=== PATIENT | male | born 1940 | race African-American/Black ===

== ENCOUNTER 2018-05-29 12:15 | Emergency (ER) | payer MEDICARE ==
[2016-07-20 18:26] VITALS: BP 132/58
[~2018-05-29] VITALS: Ht 196.8 cm; Wt 83.9 kg
[~2018-05-29 12:15] MED LIST: PRED20TA PO; PROAIR HFA8.5 GM INH
[2018-05-29] MEDS ORDERED: CYCL10TA2 PO (13:27)
[2018-05-29] MEDS ORDERED: DICL50TA4 PO (13:27)
[2018-05-29] MEDS ORDERED: METH4TAB2 PO (13:27)
--- NOTE | 2018-05-29 13:27 | PHYS DOC ---
Past Medical History Past Medical History: High Cholesterol, Hypertension Past Surgical History: Coronary Bypass Surgery Additional Past Surgical Histo: open-heart valvular surgery Alcohol Use: None Drug Use: Marijuana Adult General Chief Complaint Chief Complaint: LOWER EXT PAIN HPI HPI Patient is a 78 year old male with history of hypertension, high cholesterol, who presents today complaining of 10 out of 10 pain on his left buttock radiating into the left thigh that began 3-1/2 weeks ago after he started lifting heavy items doing scrap metal. Patient denies any injury. He states pain is worse on certain movements. He states it isn't sbil-yoh-seuealn remedies slight relief. Patient denies any loss of bowel bladder function. Review of Systems Review of Systems Constitutional: Denies fever or chills [] Eyes: Denies change in visual acuity, redness, or eye pain [] HENT: Denies nasal congestion or sore throat [] Respiratory: Denies cough or shortness of breath [] Cardiovascular: No additional information not addressed in HPI [] GI: Denies abdominal pain, nausea, vomiting, bloody stools or diarrhea [] : Denies dysuria or hematuria [] Musculoskeletal: Left low back pain Integument: Denies rash or skin lesions [] Neurologic: Denies headache, focal weakness or sensory changes [] All other systems were reviewed and found to be within normal limits, except as documented in this note. Allergies Allergies Allergies Coded Allergies Type Severity Reaction Last Updated Verified No Known Drug Allergies 07/20/16 No Physical Exam Physical Exam Constitutional: Well developed, well nourished, no acute distress, non-toxic appearance. [] Abdomen: Bowel sounds normal, soft, no tenderness, no masses, no pulsatile masses. [] Skin: Warm, dry, no erythema, no rash. [] Back: Mild tenderness on palpation of the left SI joint, no midline lumbar spine tenderness, no CVA tenderness. [] Extremities: No tenderness, no cyanosis, no clubbing, ROM intact, no edema. [] Neurologic: Alert and oriented X 3, normal motor function, normal sensory function, no focal deficits noted. [] Psychologic: Affect normal, judgement normal, mood normal. [] Current Patient Data Vital Signs Vital Signs Date Time Temp Pulse Resp B/P (MAP) Pulse Ox O2 Delivery O2 Flow Rate FiO2 05/29/18 12:30 98.6 69 18 159/115 (130) 98 Room Air 98.6 EKG EKG [] Radiology/Procedures Radiology/Procedures [] Course & Med Decision Making Course & Med Decision Making Pertinent Labs and Imaging studies reviewed. (See chart for details) This is a 78-year-old male patient presenting to the ED today with complaints of left back pain radiating to the left hamstring, patient has had this pain for 3-1/2 weeks due to lifting heavy items/scrap metal. Patient was instructed to avoid lifting heavy items. Will be discharged with diclofenac and cyclobenzaprine. Provided Medrol Dosepak. Follow-up with PCP in one week. Dragon Disclaimer Dragon Disclaimer This electronic medical record was generated, in whole or in part, using a voice recognition dictation system. Departure Departure Impression: Primary Impression: Left sciatic nerve pain Disposition: HOME, SELF-CARE Condition: STABLE Referrals: NO PCP (PCP) Follow-up with your own doctor in 1-2 weeks Patient Instructions: Sciatica with [facility] Additional Instructions: You were evaluated in the emergency room with pain suspicious of sciatica. Take the prescribed medications as ordered. Follow-up with your doctor in 1-2 weeks. Avoid lifting heavy items for 2 weeks. Apply heat to the affected area. Scripts Methylprednisolone (MEDROL) 4 Mg Tab.ds.pk 1 PKG PO UD, #1 PKG Prov: LUIS FELIPE BROCK APRN 05/29/18 Cyclobenzaprine Hcl (CYCLOBENZAPRINE HCL) 10 Mg Tablet 1 TAB PO TID, #30 TAB Prov: LUIS FELIPE BROCK APRN 05/29/18 Diclofenac Sodium (DICLOFENAC SODIUM) 50 Mg Tablet.dr 1 TAB PO BID, #30 TAB 0 Refills Prov: LUIS FELIPE BROCK APRN 05/29/18 LUIS FELIPE BROCK APRN May 29, 2018 13:27
[2018-05-29] MEDS ORDERED: CYCLOBENZAPRINE 10 MG TABLET. PO ONE (13:30)
[2018-05-29] MEDS ORDERED: HYDROcodone/APAP 5/325MG 1 TAB TABLET PO ONE (13:30)
== END 2018-05-29 13:58 | disposition home or self-care (01) ==
LOC: ER 12:15
DX: M54.42 Lumbago with sciatica, left side (principal); E78.00 Pure hypercholesterolemia, unspecified; I10 Essential (primary) hypertension; Z95.1 Presence of aortocoronary bypass graft
CPT/HCPCS: 99283

== ENCOUNTER 2021-03-04 19:25 | Inpatient (IN) | payer MEDICARE ==
[~2021-03-04] VITALS: Ht 167.6 cm; Wt 76.0 kg
[~2021-03-04 19:25] MED LIST changes: +ALBU2.5V8 INH; +AZIT250T6 PO; +BENZ100C PO; +CYCL10TA2 PO; +DICL50TA4 PO; +METH4TAB2 PO; -PROAIR HFA8.5 GM INH
[2021-03-04] MEDS ORDERED: IV NORMAL SALINE 1000ML BAG 1,000 ML IV ONE ×3 (19:45→22:00)
[2021-03-04 19:49] LABS: BASO % 1 % (0-3); EOS # 0.1 x10^3/uL (0.0-0.7); EOS % 1 % (0-3); HEMATOCRIT 39.7 % (39.0-53.0); HEMOGLOBIN 13.4 g/dL (13.0-17.5); LYMPH # 1.1 x10^3/uL (1.0-4.8); LYMPH % 14 % (24-48); MEAN CORPUSCULAR HEMOGLOBIN 32 pg (25-35); MEAN CORPUSCULAR HGB CONC 34 g/dL (31-37); MEAN CORPUSCULAR VOLUME 94 fL (79-100); MONO # 0.7 x10^3/uL (0.0-1.1); MONO % 10 % (0-9); NEUT # 5.7 x10^3/uL (1.8-7.7); NEUT % 75 % (31-73); PLATELET COUNT 266 x10^3/uL (140-400); RED BLOOD COUNT 4.21 x10^6/uL (4.30-5.70); RED CELL DISTRIBUTION WIDTH 13.2 % (11.5-14.5); WHITE BLOOD COUNT 7.6 x10^3/uL (4.0-11.0)
[2021-03-04 20:05] LABS: CALCIUM 9.1 mg/dL (8.5-10.1); GFR 13.6; POTASSIUM 4.3 mmol/L (3.5-5.1)
[2021-03-04 20:11] LABS: ALBUMIN/GLOBULIN RATIO 1.1 (1.0-1.7); MAGNESIUM 2.6 mg/dL (1.8-2.4); TOTAL BILIRUBIN 0.5 mg/dL (0.2-1.0); TOTAL PROTEIN 7.5 g/dL (6.4-8.2)
--- NOTE | 2021-03-04 20:24 | PHYS DOC ---
Past Medical History Past Medical History: CAD, High Cholesterol, Hypertension Past Surgical History: Coronary Bypass Surgery Additional Past Surgical Histo: open-heart valvular surgery Smoking Status: Never Smoker Alcohol Use: None Drug Use: Cocaine, Marijuana General Adult EDM: Chief Complaint: HYPOTENSION HPI: HPI: Patient is a 80 year old male presented to the ER with 3 days history of generalized weakness. Patient said two days ago, he dropped his medications on the floor, he picked them up and put them in the pills box, mixed them together by accident. He then has been taking them and felt like he took too much of his blood pressure medications. He felt weak and has no energy. He just bought a new house, tried to move his stuffs into a new house today, he overexerted himself and became very weak and tired. Patient has a history of coronary disease, bypass surgery, hypertension, high cholesterol. Patient is not sure what Medications he is on. Patient said he is a and he he normally goes to the OR for his medications. Patient denies any chest pain, no headache, no trouble breathing, no cough, no fever patient denies any abdominal pain, no nausea vomiting Review of Systems: Review of Systems: Constitutional: Denies fever or chills. [] Eyes: Denies change in visual acuity. [] HENT: Denies nasal congestion or sore throat. [] Respiratory: Denies cough or shortness of breath. [] Cardiovascular: Denies chest pain or edema. [] GI: Denies abdominal pain, nausea, vomiting, bloody stools or diarrhea. [] : Denies dysuria. [] Musculoskeletal: Denies back pain or joint pain. [] Integument: Denies rash. [] Neurologic: Positive for general weakness, no headache, no sensory changes Endocrine: Denies polyuria or polydipsia. [] Lymphatic: Denies swollen glands. [] Psychiatric: Denies depression or anxiety. [] Heart Score: C/O Chest Pain: N/A Risk Factors: Risk Factors: DM, Current or recent (<one month) smoker, HTN, HLP, family history of CAD, obesity. Risk Scores: Score 0 - 3: 2.5% MACE over next 6 weeks - Discharge Home Score 4 - 6: 20.3% MACE over next 6 weeks - Admit for Clinical Observation Score 7 - 10: 72.7% MACE over next 6 weeks - Early Invasive Strategies Current Medications: Current Medications Medications (Trade) Dose Ordered Sig/Leroy Start Time Stop Time Status Last Admin Dose Admin Sodium Chloride 1,000 ml @ 1,000 mls/hr 1X ONCE 03/04/21 20:30 03/04/21 21:29 Allergies: Allergies: Allergies Coded Allergies Type Severity Reaction Last Updated Verified No Known Drug Allergies 07/20/16 No Physical Exam: PE: Constitutional: Well developed, well nourished, no acute distress, non-toxic appearance. [] HENT: Normocephalic, atraumatic, bilateral external ears normal, oropharynx moist, no oral exudates, nose normal. [] Eyes: PERRLA, EOMI, conjunctiva normal, no discharge. [] Neck: Normal range of motion, no tenderness, supple, no stridor. [] Cardiovascular:Heart rate regular rhythm, no murmur [] Lungs & Thorax: Bilateral breath sounds clear to auscultation [] Abdomen: Bowel sounds normal, soft, no tenderness, no masses, no pulsatile masses. [] Skin: Warm, dry, no erythema, no rash. [] Back: No tenderness, no CVA tenderness. [] Extremities: No tenderness, no cyanosis, no clubbing, ROM intact, no edema. [] Neurologic: Alert and oriented X 3, normal motor function, normal sensory function, no focal deficits noted. [] Psychologic: Affect normal, judgement normal, mood normal. [] Current Patient Data: Labs: Laboratory Tests Test 03/04/21 19:40 White Blood Count 7.6 x10^3/uL (4.0-11.0) Red Blood Count 4.21 x10^6/uL (4.30-5.70) L Hemoglobin 13.4 g/dL (13.0-17.5) Hematocrit 39.7 % (39.0-53.0) Mean Corpuscular Volume 94 fL (79-100) Mean Corpuscular Hemoglobin 32 pg (25-35) Mean Corpuscular Hemoglobin Concent 34 g/dL (31-37) Red Cell Distribution Width 13.2 % (11.5-14.5) Platelet Count 266 x10^3/uL (140-400) Neutrophils (%) (Auto) 75 % (31-73) H Lymphocytes (%) (Auto) 14 % (24-48) L Monocytes (%) (Auto) 10 % (0-9) H Eosinophils (%) (Auto) 1 % (0-3) Basophils (%) (Auto) 1 % (0-3) Neutrophils # (Auto) 5.7 x10^3/uL (1.8-7.7) Lymphocytes # (Auto) 1.1 x10^3/uL (1.0-4.8) Monocytes # (Auto) 0.7 x10^3/uL (0.0-1.1) Eosinophils # (Auto) 0.1 x10^3/uL (0.0-0.7) Basophils # (Auto) 0.0 x10^3/uL (0.0-0.2) Sodium Level 129 mmol/L (136-145) L Potassium Level 4.3 mmol/L (3.5-5.1) Chloride Level 94 mmol/L (98-107) L Carbon Dioxide Level 22 mmol/L (21-32) Anion Gap 13 (6-14) Blood Urea Nitrogen 65 mg/dL (8-26) H Creatinine 5.0 mg/dL (0.7-1.3) H Estimated GFR (Cockcroft-Gault) 13.6 BUN/Creatinine Ratio 13 (6-20) Glucose Level 141 mg/dL (70-99) H Calcium Level 9.1 mg/dL (8.5-10.1) Magnesium Level 2.6 mg/dL (1.8-2.4) H Total Bilirubin 0.5 mg/dL (0.2-1.0) Aspartate Amino Transferase (AST) 30 U/L (15-37) Alanine Aminotransferase (ALT) 19 U/L (16-63) Alkaline Phosphatase 101 U/L (46-116) Troponin I Quantitative < 0.017 ng/mL (0.000-0.055) GD-Ree-T-Type Natriuretic Peptide 869 pg/mL (0-449) H Total Protein 7.5 g/dL (6.4-8.2) Albumin 4.0 g/dL (3.4-5.0) Albumin/Globulin Ratio 1.1 (1.0-1.7) Laboratory Tests 03/04/21 19:40 Laboratory Tests 7/5/21 19:40 Vital Signs: Vital Signs Date Time Temp Pulse Resp B/P (MAP) Pulse Ox O2 Delivery O2 Flow Rate FiO2 03/04/21 20:03 80 18 96/59 (71) 100 Room Air 03/04/21 19:31 98.1 98.1 EKG: EKG: EKG was done at 1934, heart rate of 77 bpm, sinus rhythm, left axis deviation, PVCs , no ST segment elevation Radiology/Procedures: Radiology/Procedures: [] Course & Med Decision Making: Course & Med Decision Making Pertinent Labs and Imaging studies reviewed. (See chart for details) Patient is a 80-year-old male who present to ER due to generalized weakness, patient said he mistakenly overdosed on his blood pressure medication. Patient blood pressure was low upon arrival to ER, patient was given a liter of saline, his blood pressure was improved to 105/60. Patient felt much better. Patient was found to be in acute renal failure, he will need to be admitted to hospital for further evaluation and treatment, discussed with the hospitalist on-call Dr. Jordan who agreed to admit the patient Dragon Disclaimer: Chantel Disclaimer: This electronic medical record was generated, in whole or in part, using a voice recognition dictation system. Departure Departure Impression: Primary Impression: Acute renal failure Additional Impression: Hypotension Disposition: ADMITTED INPATIENT Admitting Physician: LORETTA (Dr. Jones) Condition: IMPROVED Referrals: UNKNOWN PCP NAME (PCP) CLAUDIA ALICIA DO Mar 04, 2021 20:24
--- NOTE | 2021-03-04 21:06 | EKG ---
[facility] [address] [place] [address] Test Date: 2021-03-04 Test Time: 19:34:12 Pat Name: MEGA LIVINGSTON Department: Room: Gender: M Acute Care Nurse Practitioner: : 1940 Requested By: CLAUDIA ALICIA Order Number: [id number] Reading MD: Andi Benítez Measurements Intervals [place] Rate: 77 P: -32 NC: 192 QRS: -67 QRSD: 152 T: 103 QT: 412 QTc: 468 Interpretive Statements SINUS RHYTHM ABNORMAL LEFT AXIS DEVIATION LEFT ANTERIOR FASCICULAR BLOCK NON SPECIFIC INTRAVENTRICULAR BLOCK QRS(T) CONTOUR ABNORMALITY CONSIDER ANTEROSEPTAL MYOCARDIAL DAMAGE ABNORMAL ECG Electronically Signed On 03-06-2021 11:54:52 CDT by Andi Benítez
--- NOTE | 2021-03-04 21:33 | PDOC1 ---
History and Physical Date of Admission Date of Admission DATE: 03/04/21 TIME: 21:32 Source Source: Patient History of Present Illness History of Present Illness Mr Miguel is a 80 year old male w/ PMHx HTN, HLD, CAD and prior heart valve surgery who presented to the ER with 3 days history of generalized weakness, dizziness, malaise, and visual blurring. He also notes progressive confusion, has decided not to drive due to this. He does note that a few days ago, he dropped his medications on the floor, he picked them up and put them in the pills box, mixed them together by accident. He does not recall all his meds, gets them at the [facility], is pretty certain he takes at least 3 different BP meds, a diuretic among them. He has been moving into a new house and was unable to keep up, thinks he over-exerted himself. He denies any pain, no headache, no trouble breathing, no cough, no fever patient denies any abdominal pain, no nausea vomiting. EKG was done at 1934, heart rate of 77 bpm, sinus rhythm, left axis deviation, PVCs , no ST segment elevation Patient blood pressure was 89/59 on arrival to ER, patient was given a liter of saline, his blood pressure was improved to 105/60. Labs with WBC 7.6, Hb 13.4, platelets 266, NA 129, K4.3, BUN 65, CR 5, glucose 141, NT proBNP is 69, troponin 0 Admitted for further care. Past Medical History Cardiovascular: CAD, CHF, HTN, Hyperlipidemia Pulmonary: Bronchitis Past Surgical History Past Surgical History: Other (Heart valve surgery) Family History Family History: High Cholestrol, Hypertension Social History Smoke: No ALCOHOL: none Drugs: Marijuana Current Problem List Problem List Problems Medical Problems: (1) Acute renal failure Status: Acute (2) Hypotension Status: Acute Current Medications Current Medications Current Medications Sodium Chloride 1,000 ml @ 1,000 mls/hr 1X ONCE IV Last administered on 03/04/21at 19:49; Start 03/04/21 at 19:45; Stop 03/04/21 at 20:44; Status DC Sodium Chloride 1,000 ml @ 1,000 mls/hr 1X ONCE IV Last administered on 03/04/21at 20:25; Start 03/04/21 at 20:30; Stop 03/04/21 at 21:29; Status DC Active Scripts Active Tessalon Perle (Benzonatate) 100 Mg Capsule 1 Cap PO TID Medrol (Methylprednisolone) 4 Mg Tab.ds.pk 1 Pkg PO UD Azithromycin Tablet (Azithromycin) 250 Mg Tablet 1 Pkg PO UD 5 Days 2 the first day followed by 1 for days 2-5 Medrol (Methylprednisolone) 4 Mg Tab.ds.pk 1 Pkg PO UD Cyclobenzaprine Hcl 10 Mg Tablet 1 Tab PO TID Diclofenac Sodium 50 Mg Tablet.dr 1 Tab PO BID Prednisone 20 Mg Tablet 40 Mg PO DAILY 5 Days Proair Hfa Inhaler (Albuterol Sulfate) 8.5 Gm Hfa.aer.ad 1 Puff INH PRN Q6HRS PRN Allergies Allergies: Coded Allergies: No Known Drug Allergies (Unverified , 07/20/16) ROS General: YES: Fatigue, Malaise; No: Chills, Night Sweats, Appetite, Other PSYCHOLOGICAL ROS: YES: Disorientation; No: Anxiety, Behavioral Disorder, Concentration difficultie, Decreased libido, Depression, Hallucinations, Hostility, Irritablity, Memory difficulties, Mood Swings, Obsessive thoughts, Physical abuse, Sexual abuse, Sleep disturbances, Suicidal ideation, Other Eyes: Yes Blurry vision, Yes Decreased vision; No Double vision, No Dry eyes, No Excessive tearing, No Eye Pain, No Itchy Eyes, No Loss of vision, No Photophobia, No Scotomata, No Uses contacts, No Uses glasses, No Other HEENT: YES: Visual Changes; No: Heacaches, Hearing change, Nasal congestion, Nasal discharge, Oral lesions, Sinus pain, Sore Throat, Epistaxis, Sneezing, Snoring, Tinnitus, Vertigo, Vocal changes, Other ALLERGY AND IMMUNOLOGY: No: Hives, Insect Bite Sensitivity, Itchy/Watery Eyes, Nasal Congestion, Post Nasal Drip, Seasonal Allergies, Other Hematological and Lymphatic: No: Bleeding Problems, Blood Clots, Blood Logan sfusions, Brusing, Night Sweats, Pallor, Swollen Lymph Nodes, Other ENDOCRINE: No: Breast Changes, Galactorrhea, Hair Pattern Changes, Hot Flashes, Malaise/lethargy, Mood Swings, Palpitations, Polydipsia/polyuria, Skin Changes, Temperature Intolerance, Unexpected Weight Changes, Other Breast: No New/Changing Breast Lumps, No Nipple changes, No Nipple discharge, No Other Respiratory: YES: Shortness of breath; No: Cough, Hemoptysis, Orthopnea, Pleuritic Pain, SOB with excertion, Sputum Changes, Stridor, Tachypnea, Wheezing, Other Cardiovascular: No Chest Pain, No Palpitations, No Orthopnea, No Paroxysmal Noc. Dyspnea, No Edema, No Lt Headedness, No Other Gastrointestinal: No Nausea, No Vomiting, No Abdominal Pain, No Diarrhea, No Constipation, No Melena, No Hematochezia, No Other Genitourinary: No Dysuria, No Frequency, No Incontinence, No Hematuria, No Retention, No Discharge, No Urgency, No Pain, No Flank Pain, No Other, No , No , No , No , No , No , No Musculoskeletal: No Gait Disturbance, No Joint Pain, No Joint Stiffness, No Joint Swelling, No Muscle Pain, No Muscular Weakness, No Pain In:, No Swelling In:, No Other Neurological: Yes Confusion, Yes Gait Disturbance; No Behavorial Changes, No Bowel/Bladder ControlChng, No Dizziness, No Headaches, No Impaired Coord/balance, No Memory Loss, No Numbness/Tingling, No Seizures, No Speech Problems, No Tremors, No Visual Changes, No Weakness, No Other Skin: No Dry Skin, No Eczema, No Hair Changes, No Lumps, No Mole Changes, No Mottling, No Nail Changes, No Pruritus, No Rash, No Skin Lesion Changes, No Other, No Acne Physical Exam General: Alert, Cooperative, mild distress HEENT: Atraumatic, PERRLA, EOMI, Mucous membr. moist/pink Lungs: Clear to auscultation, Normal air movement Heart: S1S2, RRR, no thrills, no rubs, no gallops, no murmurs Abdomen: Normal bowel sounds, Soft, No tenderness, No hepatosplenomegaly, No masses Rectal Exam: not examined Extremities: No clubbing, No cyanosis, No edema, Normal pulses, No tenderne ss/swelling Skin: No rashes, No breakdown, No significant lesion Neuro: Normal speech, Strength at 5/5 X4 ext, Normal tone, Sensation intact, Cranial nerves 3-12 NL, Reflexes 2+ Psych/Mental Status: Mood NL, Other (Slight confusion) Vitals Vitals Vital Signs Date Time Temp Pulse Resp B/P (MAP) Pulse Ox O2 Delivery O2 Flow Rate FiO2 03/04/21 20:03 80 18 96/59 (71) 100 Room Air 03/04/21 19:31 98.1 98.1 Labs Labs Laboratory Tests Test 03/04/21 19:40 White Blood Count 7.6 x10^3/uL (4.0-11.0) Red Blood Count 4.21 x10^6/uL (4.30-5.70) Hemoglobin 13.4 g/dL (13.0-17.5) Hematocrit 39.7 % (39.0-53.0) Mean Corpuscular Volume 94 fL (79-100) Mean Corpuscular Hemoglobin 32 pg (25-35) Mean Corpuscular Hemoglobin Concent 34 g/dL (31-37) Red Cell Distribution Width 13.2 % (11.5-14.5) Platelet Count 266 x10^3/uL (140-400) Neutrophils (%) (Auto) 75 % (31-73) Lymphocytes (%) (Auto) 14 % (24-48) Monocytes (%) (Auto) 10 % (0-9) Eosinophils (%) (Auto) 1 % (0-3) Basophils (%) (Auto) 1 % (0-3) Neutrophils # (Auto) 5.7 x10^3/uL (1.8-7.7) Lymphocytes # (Auto) 1.1 x10^3/uL (1.0-4.8) Monocytes # (Auto) 0.7 x10^3/uL (0.0-1.1) Eosinophils # (Auto) 0.1 x10^3/uL (0.0-0.7) Basophils # (Auto) 0.0 x10^3/uL (0.0-0.2) Sodium Level 129 mmol/L (136-145) Potassium Level 4.3 mmol/L (3.5-5.1) Chloride Level 94 mmol/L (98-107) Carbon Dioxide Level 22 mmol/L (21-32) Anion Gap 13 (6-14) Blood Urea Nitrogen 65 mg/dL (8-26) Creatinine 5.0 mg/dL (0.7-1.3) Estimated GFR (Cockcroft-Gault) 13.6 BUN/Creatinine Ratio 13 (6-20) Glucose Level 141 mg/dL (70-99) Calcium Level 9.1 mg/dL (8.5-10.1) Magnesium Level 2.6 mg/dL (1.8-2.4) Total Bilirubin 0.5 mg/dL (0.2-1.0) Aspartate Amino Transf (AST/SGOT) 30 U/L (15-37) Alanine Aminotransferase (ALT/SGPT) 19 U/L (16-63) Alkaline Phosphatase 101 U/L (46-116) Troponin I Quantitative < 0.017 ng/mL (0.000-0.055) ZV-Num-E-Type Natriuretic Peptide 869 pg/mL (0-449) Total Protein 7.5 g/dL (6.4-8.2) Albumin 4.0 g/dL (3.4-5.0) Albumin/Globulin Ratio 1.1 (1.0-1.7) Laboratory Tests Test 03/04/21 19:40 White Blood Count 7.6 x10^3/uL (4.0-11.0) Red Blood Count 4.21 x10^6/uL (4.30-5.70) Hemoglobin 13.4 g/dL (13.0-17.5) Hematocrit 39.7 % (39.0-53.0) Mean Corpuscular Volume 94 fL (79-100) Mean Corpuscular Hemoglobin 32 pg (25-35) Mean Corpuscular Hemoglobin Concent 34 g/dL (31-37) Red Cell Distribution Width 13.2 % (11.5-14.5) Platelet Count 266 x10^3/uL (140-400) Neutrophils (%) (Auto) 75 % (31-73) Lymphocytes (%) (Auto) 14 % (24-48) Monocytes (%) (Auto) 10 % (0-9) Eosinophils (%) (Auto) 1 % (0-3) Basophils (%) (Auto) 1 % (0-3) Neutrophils # (Auto) 5.7 x10^3/uL (1.8-7.7) Lymphocytes # (Auto) 1.1 x10^3/uL (1.0-4.8) Monocytes # (Auto) 0.7 x10^3/uL (0.0-1.1) Eosinophils # (Auto) 0.1 x10^3/uL (0.0-0.7) Basophils # (Auto) 0.0 x10^3/uL (0.0-0.2) Sodium Level 129 mmol/L (136-145) Potassium Level 4.3 mmol/L (3.5-5.1) Chloride Level 94 mmol/L (98-107) Carbon Dioxide Level 22 mmol/L (21-32) Anion Gap 13 (6-14) Blood Urea Nitrogen 65 mg/dL (8-26) Creatinine 5.0 mg/dL (0.7-1.3) Estimated GFR (Cockcroft-Gault) 13.6 BUN/Creatinine Ratio 13 (6-20) Glucose Level 141 mg/dL (70-99) Calcium Level 9.1 mg/dL (8.5-10.1) Magnesium Level 2.6 mg/dL (1.8-2.4) Total Bilirubin 0.5 mg/dL (0.2-1.0) Aspartate Amino Transf (AST/SGOT) 30 U/L (15-37) Alanine Aminotransferase (ALT/SGPT) 19 U/L (16-63) Alkaline Phosphatase 101 U/L (46-116) Troponin I Quantitative < 0.017 ng/mL (0.000-0.055) UK-Xfd-W-Type Natriuretic Peptide 869 pg/mL (0-449) Total Protein 7.5 g/dL (6.4-8.2) Albumin 4.0 g/dL (3.4-5.0) Albumin/Globulin Ratio 1.1 (1.0-1.7) VTE Prophylaxis Ordered VTE Prophylaxis Devices: No VTE Pharmacological Prophylaxi: Yes Assessment/Plan Assessment/Plan A/P: Confusion - improved after IVF, likely due to hypotension, poor cerebral perfusion ALEX - likely vasomotor nephropathy from renal hypoperfusion. No anemia or other stigmata of CKD and he denies CKD history. Will hydrate Hyponatremia - hypovolemic, will replace, follow sodium trend. Reconcile meds and consult nephrology Weakness - will check TSH, B12. PT to evaluate Hypotension - likely due to accidental med overdose HTN - will reconcile home medications with pharmacy. Hold all meds currently due to symptomatic hypotension CAD - s/p valve surgery - likely mitral or aortic valve clipping, will obtain [facility] records Hyperglycemia - likely stress related, he does not recall history of diabetes H/o bronchitis - prn nebs FEN - Cardiac diet PPX - heparin FULL CODE Dispo - inpatient for above Justifications for Admission Other Justification OLIVE LUNDBERG MD Mar 04, 2021 21:33
[2021-03-04] MEDS ORDERED: ACETAMINOPHEN 325 MG TABLET. PO PRN (21:45)
[2021-03-04] MEDS ORDERED: ONDANSETRON PF 4 MG/2 ML VIAL. IVP PRN (21:45)
[2021-03-04] MEDS ORDERED: hydrALAZINE 20 MG/ML VIAL. IVP PRN (21:45)
[2021-03-04 22:55] VITALS: BP 103/65
[2021-03-04] MEDS: HEPARIN for SUB-Q USE 5,000 UNIT/ML VIAL. SQ SCH (23:03)
[2021-03-04] MEDS ORDERED: ALBUTEROL SULFATE 2.5 MG/3 ML NEBU. INH PRN (23:30)
[2021-03-05 03:00] VITALS: BP 92/62
[2021-03-05] MEDS: HEPARIN for SUB-Q USE 5,000 UNIT/ML VIAL. SQ SCH ×3 (06:11→21:31)
[2021-03-05 06:31] LABS: BASO % 1 % (0-3); EOS # 0.1 x10^3/uL (0.0-0.7); EOS % 2 % (0-3); HEMATOCRIT 35.6 % (39.0-53.0); LYMPH # 1.8 x10^3/uL (1.0-4.8); LYMPH % 30 % (24-48); MEAN CORPUSCULAR HEMOGLOBIN 32 pg (25-35); MEAN CORPUSCULAR HGB CONC 34 g/dL (31-37); MEAN CORPUSCULAR VOLUME 95 fL (79-100); MONO # 0.7 x10^3/uL (0.0-1.1); MONO % 12 % (0-9); NEUT # 3.4 x10^3/uL (1.8-7.7); NEUT % 56 % (31-73); PLATELET COUNT 227 x10^3/uL (140-400); RED BLOOD COUNT 3.74 x10^6/uL (4.30-5.70); RED CELL DISTRIBUTION WIDTH 13.4 % (11.5-14.5)
[2021-03-05 06:43] LABS: CALCIUM 8.1 mg/dL (8.5-10.1); CREATININE 3.7 mg/dL (0.7-1.3); GFR 19.3; POTASSIUM 4.3 mmol/L (3.5-5.1)
[2021-03-05 07:17] VITALS: BP 93/62
--- NOTE | 2021-03-05 09:22 | PDOC2 ---
CONSULT Date of Consult Date of Consult DATE: 03/05/21 TIME: 09:22 Reason for Consult Reason for Consult: ALEX, HypoNatremia Source Source: Chart review, Patient History of Present Illness Reason for Visit: Patient is a 80 year old AA male w/ PMHx HTN, CAD and prior heart valve surgery who presented to the ER with 3 days history of generalized weakness, dizziness, malaise, and visual blurring. He also notes progressive confusion He reports that that a few days ago, he dropped his medications on the floor, he picked them up and put them in the pills box, mixed them together by accident. He does not recall all his meds, gets them at the [facility], is pretty certain he takes at least 3 different BP meds, a diuretic among them. He has been moving into a new house and was unable to keep up, thinks he over- exerted himself. He denies any pain, no headache, no trouble breathing, no cough, no fever patient denies any abdominal pain, no nausea vomiting. He is c/o diarrhea for past few days, reports watery 3-4 /day , denies any blood, No abdominal cramping. Denies any urinary complaints , No dysuria, hematuria. Doesnt know if he has any kidney related issues or sees a kidney doctor. He is on remy meds as prescribed, doesnt recall names. Denies any OTC meds/supplements . He reports smoking Marijuana for sleep Past Medical History Cardiovascular: CAD, CHF, HTN, Hyperlipidemia Pulmonary: Bronchitis Past Surgical History Past Surgical History: Other (Heart valve surgery) Family History Family History: High Cholestrol, Hypertension Social History No ALCOHOL: none Drugs: Marijuana Current Problem List Problem List Problems Medical Problems: (1) Acute renal failure Status: Acute (2) Hypotension Status: Acute Current Medications Current Medications Current Medications Sodium Chloride 1,000 ml @ 1,000 mls/hr 1X ONCE IV Last administered on 03/04/21at 19:49; Start 03/04/21 at 19:45; Stop 03/04/21 at 20:44; Status DC Sodium Chloride 1,000 ml @ 1,000 mls/hr 1X ONCE IV Last administered on 1at 20:25; Start 03/04/21 at 20:30; Stop 03/04/21 at 21:29; Status DC Ondansetron HCl (Zofran) 4 mg PRN Q4HRS PRN IVP NAUSEA/VOMITING 1ST CHOICE; Start 03/04/21 at 21:45 Heparin Sodium (Porcine) (Heparin Sodium) 5,000 unit Q8HRS SQ Last administered on 03/05/21at 06:11; Start 03/04/21 at 22:00 Acetaminophen (Tylenol) 650 mg PRN Q6HRS PRN PO MILD PAIN / TEMP > 100.3'F; Start 03/04/21 at 21:45 Hydralazine HCl (Apresoline Inj) 10 mg PRN Q4HRS PRN IVP ELEVATED BP, SEE COMMENTS; Start 03/04/21 at 21:45 Sodium Chloride 1,000 ml @ 125 mls/hr 1X ONCE IV Last administered on 03/04/21at 23:02; Start 03/04/21 at 22:00; Stop 03/05/21 at 05:59; Status DC Albuterol Sulfate (Ventolin Neb Soln) 2.5 mg PRN Q6HRS PRN INH SHORTNESS OF BREATH; Start 03/04/21 at 23:30 Active Scripts Active Tessalon Perle (Benzonatate) 100 Mg Capsule 1 Cap PO TID Medrol (Methylprednisolone) 4 Mg Tab.ds.pk 1 Pkg PO UD Azithromycin Tablet (Azithromycin) 250 Mg Tablet 1 Pkg PO UD 5 Days 2 the first day followed by 1 for days 2-5 Medrol (Methylprednisolone) 4 Mg Tab.ds.pk 1 Pkg PO UD Cyclobenzaprine Hcl 10 Mg Tablet 1 Tab PO TID Diclofenac Sodium 50 Mg Tablet.dr 1 Tab PO BID Prednisone 20 Mg Tablet 40 Mg PO DAILY 5 Days Proair Hfa Inhaler (Albuterol Sulfate) 8.5 Gm Hfa.aer.ad 1 Puff INH PRN Q6HRS PRN Allergies Allergies: Coded Allergies: No Known Drug Allergies (Unverified , 07/20/16) ROS Review of System As per HPI, rest of the ROS is negative Physical Exam Physical Exam General: NAD , Propped up in bed HEENT: Mucous membr mildly dry Neck supple Lungs: Clear to auscultation, non labored Heart: S1S2, RRR, no thrills, no rubs, no gallops, no murmurs Abdomen: Normal bowel sounds, Soft, No tenderness, No hepatosplenomegaly, No masses Extremities: No clubbing, No cyanosis, No edema, Skin: No rashes, Neuro:Grossly normal No galvez, No CVA or SP tenderness Psych/Mental Status: Mood NL, Other (Slight confusion) Vital Signs Vital Signs Date Time Temp Pulse Resp B/P (MAP) Pulse Ox O2 Delivery O2 Flow Rate FiO2 03/05/21 07:17 98.1 75 16 93/62 (72) 99 Room Air 98.1 Assessment & Plan ALEX- Vasomotor , Improving renal function, No Interval labs since 2016, PCP at [facility] - pt unable to give any details Recommend Supportive care, Fluid balance, avoid nephrotoxins, Strict I/O CKD stage 3 A - Only lab in [facility] from 2016 Cr 1.7 , no interval labs available HypoNatremia 2/2 Vol depletion, resolved with IVF Hypotension POA 2/2 accidental overdose Confusion - improved after IVF Diarrhea - per pt, defer to primary Hx of HTN - on antihypertensives at home , BP's Low, Hold antihypertensives CAD / s/p valve surgery - likely mitral or aortic valve clipping Labs Labs Laboratory Tests Test 03/04/21 00:15 03/04/21 19:40 03/05/21 05:40 Vitamin B12 Level 472 pg/mL (247-911) Thyroid Stimulating Hormone (TSH) 0.273 uIU/mL (0.358-3.74) White Blood Count 7.6 x10^3/uL (4.0-11.0) 6.0 x10^3/uL (4.0-11.0) Red Blood Count 4.21 x10^6/uL (4.30-5.70) 3.74 x10^6/uL (4.30-5.70) Hemoglobin 13.4 g/dL (13.0-17.5) 12.0 g/dL (13.0-17.5) Hematocrit 39.7 % (39.0-53.0) 35.6 % (39.0-53.0) Mean Corpuscular Volume 94 fL (79-100) 95 fL (79-100) Mean Corpuscular Hemoglobin 32 pg (25-35) 32 pg (25-35) Mean Corpuscular Hemoglobin Concent 34 g/dL (31-37) 34 g/dL (31-37) Red Cell Distribution Width 13.2 % (11.5-14.5) 13.4 % (11.5-14.5) Platelet Count 266 x10^3/uL (140-400) 227 x10^3/uL (140-400) Neutrophils (%) (Auto) 75 % (31-73) 56 % (31-73) Lymphocytes (%) (Auto) 14 % (24-48) 30 % (24-48) Monocytes (%) (Auto) 10 % (0-9) 12 % (0-9) Eosinophils (%) (Auto) 1 % (0-3) 2 % (0-3) Basophils (%) (Auto) 1 % (0-3) 1 % (0-3) Neutrophils # (Auto) 5.7 x10^3/uL (1.8-7.7) 3.4 x10^3/uL (1.8-7.7) Lymphocytes # (Auto) 1.1 x10^3/uL (1.0-4.8) 1.8 x10^3/uL (1.0-4.8) Monocytes # (Auto) 0.7 x10^3/uL (0.0-1.1) 0.7 x10^3/uL (0.0-1.1) Eosinophils # (Auto) 0.1 x10^3/uL (0.0-0.7) 0.1 x10^3/uL (0.0-0.7) Basophils # (Auto) 0.0 x10^3/uL (0.0-0.2) 0.0 x10^3/uL (0.0-0.2) Sodium Level 129 mmol/L (136-145) 137 mmol/L (136-145) Potassium Level 4.3 mmol/L (3.5-5.1) 4.3 mmol/L (3.5-5.1) Chloride Level 94 mmol/L (98-107) 103 mmol/L (98-107) Carbon Dioxide Level 22 mmol/L (21-32) 24 mmol/L (21-32) Anion Gap 13 (6-14) 10 (6-14) Blood Urea Nitrogen 65 mg/dL (8-26) 59 mg/dL (8-26) Creatinine 5.0 mg/dL (0.7-1.3) 3.7 mg/dL (0.7-1.3) Estimated GFR (Cockcroft-Gault) 13.6 19.3 BUN/Creatinine Ratio 13 (6-20) Glucose Level 141 mg/dL (70-99) 81 mg/dL (70-99) Calcium Level 9.1 mg/dL (8.5-10.1) 8.1 mg/dL (8.5-10.1) Magnesium Level 2.6 mg/dL (1.8-2.4) Total Bilirubin 0.5 mg/dL (0.2-1.0) Aspartate Amino Transf (AST/SGOT) 30 U/L (15-37) Alanine Aminotransferase (ALT/SGPT) 19 U/L (16-63) Alkaline Phosphatase 101 U/L (46-116) Troponin I Quantitative < 0.017 ng/mL (0.000-0.055) < 0.017 ng/mL (0.000-0.055) UB-Kfm-S-Type Natriuretic Peptide 869 pg/mL (0-449) Total Protein 7.5 g/dL (6.4-8.2) Albumin 4.0 g/dL (3.4-5.0) Albumin/Globulin Ratio 1.1 (1.0-1.7) Laboratory Tests Test 03/04/21 19:40 03/05/21 05:40 White Blood Count 7.6 x10^3/uL (4.0-11.0) 6.0 x10^3/uL (4.0-11.0) Red Blood Count 4.21 x10^6/uL (4.30-5.70) 3.74 x10^6/uL (4.30-5.70) Hemoglobin 13.4 g/dL (13.0-17.5) 12.0 g/dL (13.0-17.5) Hematocrit 39.7 % (39.0-53.0) 35.6 % (39.0-53.0) Mean Corpuscular Volume 94 fL (79-100) 95 fL (79-100) Mean Corpuscular Hemoglobin 32 pg (25-35) 32 pg (25-35) Mean Corpuscular Hemoglobin Concent 34 g/dL (31-37) 34 g/dL (31-37) Red Cell Distribution Width 13.2 % (11.5-14.5) 13.4 % (11.5-14.5) Platelet Count 266 x10^3/uL (140-400) 227 x10^3/uL (140-400) Neutrophils (%) (Auto) 75 % (31-73) 56 % (31-73) Lymphocytes (%) (Auto) 14 % (24-48) 30 % (24-48) Monocytes (%) (Auto) 10 % (0-9) 12 % (0-9) Eosinophils (%) (Auto) 1 % (0-3) 2 % (0-3) Basophils (%) (Auto) 1 % (0-3) 1 % (0-3) Neutrophils # (Auto) 5.7 x10^3/uL (1.8-7.7) 3.4 x10^3/uL (1.8-7.7) Lymphocytes # (Auto) 1.1 x10^3/uL (1.0-4.8) 1.8 x10^3/uL (1.0-4.8) Monocytes # (Auto) 0.7 x10^3/uL (0.0-1.1) 0.7 x10^3/uL (0.0-1.1) Eosinophils # (Auto) 0.1 x10^3/uL (0.0-0.7) 0.1 x10^3/uL (0.0-0.7) Basophils # (Auto) 0.0 x10^3/uL (0.0-0.2) 0.0 x10^3/uL (0.0-0.2) Sodium Level 129 mmol/L (136-145) 137 mmol/L (136-145) Potassium Level 4.3 mmol/L (3.5-5.1) 4.3 mmol/L (3.5-5.1) Chloride Level 94 mmol/L (98-107) 103 mmol/L (98-107) Carbon Dioxide Level 22 mmol/L (21-32) 24 mmol/L (21-32) Anion Gap 13 (6-14) 10 (6-14) Blood Urea Nitrogen 65 mg/dL (8-26) 59 mg/dL (8-26) Creatinine 5.0 mg/dL (0.7-1.3) 3.7 mg/dL (0.7-1.3) Estimated GFR (Cockcroft-Gault) 13.6 19.3 BUN/Creatinine Ratio 13 (6-20) Glucose Level 141 mg/dL (70-99) 81 mg/dL (70-99) Calcium Level 9.1 mg/dL (8.5-10.1) 8.1 mg/dL (8.5-10.1) Magnesium Level 2.6 mg/dL (1.8-2.4) Total Bilirubin 0.5 mg/dL (0.2-1.0) Aspartate Amino Transf (AST/SGOT) 30 U/L (15-37) Alanine Aminotransferase (ALT/SGPT) 19 U/L (16-63) Alkaline Phosphatase 101 U/L (46-116) Troponin I Quantitative < 0.017 ng/mL (0.000-0.055) < 0.017 ng/mL (0.000-0.055) NO-Mne-C-Type Natriuretic Peptide 869 pg/mL (0-449) Total Protein 7.5 g/dL (6.4-8.2) Albumin 4.0 g/dL (3.4-5.0) Albumin/Globulin Ratio 1.1 (1.0-1.7) Review All relevant outside records, renal labs, imaging studies, telemetry/EKG's were reviewed. LIZABETH RAMIREZ MD Mar 05, 2021 09:22
[2021-03-05] MEDS ORDERED: PHARMACY TO REVIEW MEDS. MC ONE (10:15)
[2021-03-05 10:25] VITALS: BP 94/65
--- NOTE | 2021-03-05 10:54 | NUR ---
SS following for discharge planning. SS reviewed pt chart and discussed with pt RN. Pt is from home and is currently on room air. PT/OT ordered. PT recommended home independent. SS will continue to follow for discharge planning.
[2021-03-05] MEDS ORDERED: TORS20TA2 PO (11:04)
[2021-03-05] MEDS ORDERED: SENN8.6T11 PO (11:04)
[2021-03-05] MEDS ORDERED: LISI40TA6 PO (11:04)
[2021-03-05] MEDS ORDERED: ALLO300T PO (11:05)
[2021-03-05] MEDS ORDERED: CYCL10TA2 PO (11:14)
[2021-03-05] MEDS ORDERED: CHOL500021 PO (11:14)
[2021-03-05] MEDS ORDERED: ASCO100T4 PO (11:14)
[2021-03-05] MEDS ORDERED: ASPI81TA59 PO (11:14)
[2021-03-05] MEDS ORDERED: EPLE25TA4 PO (11:24)
[2021-03-05 14:40] LABS: BILIRUBIN,URINE NEGATIVE (NEG); CLARITY,URINE CLEAR; COLOR,URINE YELLOW; NITRITE,URINE NEGATIVE (NEG); PH,URINE 5.5 (<5.0-8.0); PROTEIN,URINE NEGATIVE (NEG-TRACE); UROBILINOGEN,URINE 0.2 mg/dL (0.2 mg/dL)
[2021-03-05 14:47] LABS: TRICHOMONAS,URINE PRESENT
[2021-03-05 14:49] LABS: BACTERIA,URINE 0 /HPF (0-FEW); RBC,URINE 0 /HPF (0-2)
[2021-03-05 14:55] VITALS: BP 92/60
[2021-03-05] MEDS ORDERED: CYCLOBENZAPRINE 10 MG TABLET. PO PRN (15:00)
--- NOTE | 2021-03-05 17:09 | PDOC ---
[employer] PROGRESS NOTE Date of Service DOS: DATE: 03/05/21 TIME: 17:05 Chief Complaint Chief Complaint Weakness, Hypotension History of Present Illness History of Present Illness 03/05/2021 Patient seen and examined at bedside Reports notable improvement in his symptoms since admission Believes it is highly likely he essentially overdosed on his blood pressure pills Nephrology consulted for ALEX Plan of care discussed with bedside RN Mr Miguel is a 80 year old male w/ PMHx HTN, HLD, CAD and prior heart valve surgery who presented to the ER with 3 days history of generalized weakness, dizziness, malaise, and visual blurring. He also notes progressive confusion, has decided not to drive due to this. He does note that a few days ago, he dropped his medications on the floor, he picked them up and put them in the pills box, mixed them together by accident. He does not recall all his meds, gets them at the [facility], is pretty certain he takes at least 3 different BP meds, a diuretic among them. He has been moving into a new house and was unable to keep up, thinks he over-exerted himself. He denies any pain, no headache, no trouble breathing, no cough, no fever patient denies any abdominal pain, no nausea vomiting. EKG was done at 1934, heart rate of 77 bpm, sinus rhythm, left axis deviation, PVCs , no ST segment elevation Patient blood pressure was 89/59 on arrival to ER, patient was given a liter of saline, his blood pressure was improved to 105/60. Labs with WBC 7.6, Hb 13.4, platelets 266, NA 129, K4.3, BUN 65, CR 5, glucose 141, NT proBNP is 69, troponin 0 Admitted for further care. Vitals/I&O Vitals/I&O: Vital Signs Date Time Temp Pulse Resp B/P (MAP) Pulse Ox O2 Delivery O2 Flow Rate FiO2 03/05/21 14:55 97.9 67 16 92/60 (71) 98 Room Air 97.9 I & O 03/04/21 03/04/21 03/05/21 15:00 23:00 07:00 Intake Total 2000 ml 720 ml Output Total 1050 ml Balance 2000 ml -330 ml Physical Exam General: Alert, Cooperative, No acute distress Heart: Regular rate, Normal S1, Normal S2 Lungs: Other (Somewhat coarse throughout but not requiring any supplemental oxygen) Abdomen: Normal bowel sounds, Soft, No tenderness, No masses Extremities: No clubbing, No cyanosis, No edema, Normal pulses, No tend erness/swelling Skin: No rashes, No breakdown, No significant lesion Labs Labs: Laboratory Tests Test 03/04/21 19:40 03/05/21 05:40 03/05/21 14:11 White Blood Count 7.6 x10^3/uL (4.0-11.0) 6.0 x10^3/uL (4.0-11.0) Red Blood Count 4.21 x10^6/uL (4.30-5.70) 3.74 x10^6/uL (4.30-5.70) Hemoglobin 13.4 g/dL (13.0-17.5) 12.0 g/dL (13.0-17.5) Hematocrit 39.7 % (39.0-53.0) 35.6 % (39.0-53.0) Mean Corpuscular Volume 94 fL (79-100) 95 fL (79-100) Mean Corpuscular Hemoglobin 32 pg (25-35) 32 pg (25-35) Mean Corpuscular Hemoglobin Concent 34 g/dL (31-37) 34 g/dL (31-37) Red Cell Distribution Width 13.2 % (11.5-14.5) 13.4 % (11.5-14.5) Platelet Count 266 x10^3/uL (140-400) 227 x10^3/uL (140-400) Neutrophils (%) (Auto) 75 % (31-73) 56 % (31-73) Lymphocytes (%) (Auto) 14 % (24-48) 30 % (24-48) Monocytes (%) (Auto) 10 % (0-9) 12 % (0-9) Eosinophils (%) (Auto) 1 % (0-3) 2 % (0-3) Basophils (%) (Auto) 1 % (0-3) 1 % (0-3) Neutrophils # (Auto) 5.7 x10^3/uL (1.8-7.7) 3.4 x10^3/uL (1.8-7.7) Lymphocytes # (Auto) 1.1 x10^3/uL (1.0-4.8) 1.8 x10^3/uL (1.0-4.8) Monocytes # (Auto) 0.7 x10^3/uL (0.0-1.1) 0.7 x10^3/uL (0.0-1.1) Eosinophils # (Auto) 0.1 x10^3/uL (0.0-0.7) 0.1 x10^3/uL (0.0-0.7) Basophils # (Auto) 0.0 x10^3/uL (0.0-0.2) 0.0 x10^3/uL (0.0-0.2) Sodium Level 129 mmol/L (136-145) 137 mmol/L (136-145) Potassium Level 4.3 mmol/L (3.5-5.1) 4.3 mmol/L (3.5-5.1) Chloride Level 94 mmol/L (98-107) 103 mmol/L (98-107) Carbon Dioxide Level 22 mmol/L (21-32) 24 mmol/L (21-32) Anion Gap 13 (6-14) 10 (6-14) Blood Urea Nitrogen 65 mg/dL (8-26) 59 mg/dL (8-26) Creatinine 5.0 mg/dL (0.7-1.3) 3.7 mg/dL (0.7-1.3) Estimated GFR (Cockcroft-Gault) 13.6 19.3 BUN/Creatinine Ratio 13 (6-20) Glucose Level 141 mg/dL (70-99) 81 mg/dL (70-99) Calcium Level 9.1 mg/dL (8.5-10.1) 8.1 mg/dL (8.5-10.1) Magnesium Level 2.6 mg/dL (1.8-2.4) Total Bilirubin 0.5 mg/dL (0.2-1.0) Aspartate Amino Transf (AST/SGOT) 30 U/L (15-37) Alanine Aminotransferase (ALT/SGPT) 19 U/L (16-63) Alkaline Phosphatase 101 U/L (46-116) Troponin I Quantitative < 0.017 ng/mL (0.000-0.055) < 0.017 ng/mL (0.000-0.055) WT-Rzh-D-Type Natriuretic Peptide 869 pg/mL (0-449) Total Protein 7.5 g/dL (6.4-8.2) Albumin 4.0 g/dL (3.4-5.0) Albumin/Globulin Ratio 1.1 (1.0-1.7) Urine Collection Type Unknown Urine Color Yellow Urine Clarity Clear Urine pH 5.5 (<5.0-8.0) Urine Specific [place] <=1.005 (1.000-1.030) Urine Protein Negative mg/dL (NEG-TRACE) Urine Glucose (UA) Negative mg/dL (NEG) Urine Ketones (Stick) Negative mg/dL (NEG) Urine Blood Negative (NEG) Urine Nitrite Negative (NEG) Urine Bilirubin Negative (NEG) Urine Urobilinogen Dipstick 0.2 mg/dL (0.2 mg/dL) Urine Leukocyte Esterase Large (NEG) Urine RBC 0 /HPF (0-2) Urine WBC 11-20 /HPF (0-4) Urine Squamous Epithelial Cells Few /LPF Urine Bacteria 0 /HPF (0-FEW) Urine Trichomonas Present Urine Random Creatinine 60.7 mg/dL (Not Establ.) Review of Systems Review of Systems: Patient reports ongoing mild weakness however significantly improved since admission otherwise negative Assessment and Plan Assessmemt and Plan Problems Medical Problems: (1) Acute renal failure Status: Acute (2) Hypotension Status: Acute A/P: Confusion - improved after IVF, likely due to hypotension, poor cerebral perfusion ALEX - likely vasomotor nephropathy from renal hypoperfusion. No anemia or other stigmata of CKD and he denies CKD history. Will continue hydration; nephrology consulted Hyponatremia - hypovolemic, will replace, follow sodium trend. Reconcile meds and consult nephrology Weakness - PT to evaluate Hypotension - likely due to accidental med overdose HTN - holding home BP meds due to hypotension CAD - s/p valve surgery - likely mitral or aortic valve clipping, will obtain [facility] records Hyperglycemia - likely stress related, he does not recall history of diabetes H/o bronchitis - prn nebs FEN - Cardiac diet PPX - heparin FULL CODE Dispo - inpatient for above Comment Review of Relevant I have reviewed the following items milad (where applicable) has been applied. Medications: Current Medications Medications (Trade) Dose Ordered Sig/Leroy Route PRN Reason Start Time Stop Time Status Last Admin Dose Admin Sodium Chloride 1,000 ml @ 1,000 mls/hr 1X ONCE IV 03/04/21 19:45 03/04/21 20:44 DC 03/04/21 19:49 Sodium Chloride 1,000 ml @ 1,000 mls/hr 1X ONCE IV 03/04/21 20:30 03/04/21 21:29 DC 03/04/21 20:25 Heparin Sodium (Porcine) (Heparin Sodium) 5,000 unit Q8HRS SQ 03/04/21 22:00 03/05/21 14:16 Sodium Chloride 1,000 ml @ 125 mls/hr 1X ONCE IV 03/04/21 22:00 03/05/21 05:59 DC 03/04/21 23:02 Justifications for Admission Other Justification OLIVE JUAREZ MD Mar 05, 2021 17:09
[2021-03-05 19:00] VITALS: BP 96/62
[2021-03-05 23:00] VITALS: BP 118/66
[2021-03-05 23:12] LABS: SODIUM, URINE <20 mmol/L (Not Estab.); UR POTASSIUM 8.1 mmol/L (Not Estab.)
[2021-03-06 02:52] VITALS: BP 96/62
[2021-03-06 04:34] LABS: CALCIUM 8.2 mg/dL (8.5-10.1); CREATININE 2.1 mg/dL (0.7-1.3); POTASSIUM 4.7 mmol/L (3.5-5.1)
[2021-03-06] MEDS: HEPARIN for SUB-Q USE 5,000 UNIT/ML VIAL. SQ SCH ×2 (06:20→14:46)
[2021-03-06 07:00] VITALS: BP 105/71
[2021-03-06] MEDS ORDERED: ALLOPURINOL 100 MG TABLET. PO SCH (09:00)
[2021-03-06] MEDS ORDERED: ASPIRIN CHEWABLE 81 MG TABLET. PO SCH (09:00)
--- NOTE | 2021-03-06 09:54 | PDOC ---
DATE OF SERVICE DATE: 03/06/21 TIME: 09:53 SUBJECTIVE ROS States he is feeling much better and is anticipating discharge today OBJECTIVE Vital Signs Vital Signs Date Time Temp Pulse Resp B/P (MAP) Pulse Ox O2 Delivery O2 Flow Rate FiO2 03/06/21 08:18 99 Room Air 03/06/21 07:00 97.8 61 18 105/71 (82) 97.8 I & 0 Intake and Output 03/06/21 07:00 Intake Total 2180 ml Output Total 2750 ml Balance -570 ml Intake Oral 1180 ml IV Total 1000 ml Output Urine Total 2750 ml PHYSICAL EXAM Physical Exam General: NAD HEENT: Mucous membr moist Neck supple Lungs: Clear to auscultation, non labored Heart: S1S2, RRR, no thrills, no rubs, no gallops, no murmurs Abdomen: Normal bowel sounds, Soft, No tenderness, No hepatosplenomegaly, No masses Extremities: No clubbing, No cyanosis, No edema, Skin: No rashes, Neuro:Grossly normal No galvez, No CVA or SP tenderness DIAGNOSIS/ASSESSMENT Assessment & Plan ALEX- Vasomotor , Improving renal function, No Interval labs since 2016, PCP at [facility] - pt unable to give any details Recommend Supportive care, Fluid balance, avoid dehydration, avoid nephrotoxins, Follow up with toe stripper at [facility] CKD stage 3 A - Only lab in [facility] from 2016 Cr 1.7 , no interval labs available HypoNatremia 2/2 Vol depletion, resolved with IVF Hypotension POA 2/2 accidental overdose Confusion - resolved Diarrhea - per pt, defer to primary Hx of HTN - on antihypertensives at home , BP's Low, Hold antihypertensives CAD / s/p valve surgery - likely mitral or aortic valve clipping COMMENT/RELEVANT DATA Meds Current Medications Medications (Trade) Dose Ordered Sig/Leroy Start Time Stop Time Status Last Admin Dose Admin Acetaminophen (Tylenol) 650 mg PRN Q6HRS PRN 03/04/21 21:45 Albuterol Sulfate (Ventolin Neb Soln) 2.5 mg PRN Q6HRS PRN 03/04/21 23:30 Allopurinol (Zyloprim) 100 mg DAILY 03/06/21 09:00 03/06/21 08:38 100 MG Aspirin (Aspirin Chewable) 81 mg DAILY 03/06/21 09:00 03/06/21 08:38 81 MG Cyclobenzaprine HCl (Flexeril) 10 mg TID PRN PRN 03/05/21 15:00 Heparin Sodium (Porcine) (Heparin Sodium) 5,000 unit Q8HRS 03/04/21 22:00 03/06/21 06:20 5,000 UNIT Hydralazine HCl (Apresoline Inj) 10 mg PRN Q4HRS PRN 03/04/21 21:45 Info (Review Meds) 1 ea 1X ONCE 03/05/21 10:15 03/05/21 10:16 Cancel Ondansetron HCl (Zofran) 4 mg PRN Q4HRS PRN 03/04/21 21:45 Sodium Chloride 1,000 ml @ 125 mls/hr 1X ONCE 03/04/21 22:00 03/05/21 05:59 DC 03/04/21 23:02 125 MLS/HR Lab Laboratory Tests Test 03/05/21 14:11 03/06/21 03:10 Urine Collection Type Unknown Urine Color Yellow Urine Clarity Clear Urine pH 5.5 (<5.0-8.0) Urine Specific [place] <=1.005 (1.000-1.030) Urine Protein Negative mg/dL (NEG-TRACE) Urine Glucose (UA) Negative mg/dL (NEG) Urine Ketones (Stick) Negative mg/dL (NEG) Urine Blood Negative (NEG) Urine Nitrite Negative (NEG) Urine Bilirubin Negative (NEG) Urine Urobilinogen Dipstick 0.2 mg/dL (0.2 mg/dL) Urine Leukocyte Esterase Large (NEG) Urine RBC 0 /HPF (0-2) Urine WBC 11-20 /HPF (0-4) Urine Squamous Epithelial Cells Few /LPF Urine Bacteria 0 /HPF (0-FEW) Urine Trichomonas Present Urine Random Creatinine 60.7 mg/dL (Not Establ.) Urine Sodium <20 mmol/L (Not Estab.) Urine Potassium 8.1 mmol/L (Not Estab.) Urine Chloride <20 mmol/L (Not Estab.) Sodium Level 140 mmol/L (136-145) Potassium Level 4.7 mmol/L (3.5-5.1) Chloride Level 106 mmol/L (98-107) Carbon Dioxide Level 26 mmol/L (21-32) Anion Gap 8 (6-14) Blood Urea Nitrogen 39 mg/dL (8-26) Creatinine 2.1 mg/dL (0.7-1.3) Estimated GFR (Cockcroft-Gault) 37.0 Glucose Level 86 mg/dL (70-99) Calcium Level 8.2 mg/dL (8.5-10.1) Results All relevant outside records, renal labs, imaging studies, telemetry/EKG's were reviewed. Justicifation of Admission Dx: Justifications for Admission: Justification of Admission Dx: N/A LIZABETH RAMIREZ MD Mar 06, 2021 09:54
--- NOTE | 2021-03-06 10:14 | PDOC3 ---
[facility]-Discharge Summary Date of Admission: Date of Admission: Mar 04, 2021 Date of Discharge: Date of Discharge: Mar 06, 2021 Admission Diagnosis: Problems: (1) Hypotension (2) Metabolic encephalopathy (3) Acute renal failure Discharge Diagnosis: Discharge Diagnosis: Hypotension, Metabolic Encephalopathy, Weakness 2/2 Hypotension Consults: Consults: Nephrology Hospital Course: Hospital Course: HPI from admission "Mr Miguel is a 80 year old male w/ PMHx HTN, HLD, CAD and prior heart valve surgery who presented to the ER with 3 days history of generalized weakness, dizziness, malaise, and visual blurring. He also notes progressive confusion, has decided not to drive due to this. He does note that a few days ago, he dropped his medications on the floor, he picked them up and put them in the pills box, mixed them together by accident. He does not recall all his meds, gets them at the [facility], is pretty certain he takes at least 3 different BP meds, a diuretic among them. He has been moving into a new house and was unable to keep up, thinks he over-exerted himself. He denies any pain, no headache, no trouble breathing, no cough, no fever patient denies any abdominal pain, no nausea vomiting. EKG was done at 1934, heart rate of 77 bpm, sinus rhythm, left axis deviation, PVCs , no ST segment elevation Patient blood pressure was 89/59 on arrival to ER, patient was given a liter of saline, his blood pressure was improved to 105/60. Labs with WBC 7.6, Hb 13.4, platelets 266, NA 129, K4.3, BUN 65, CR 5, glucose 141, NT proBNP is 69, troponin 0 Admitted for further care" Patient was volume resuscitated after admission and home blood pressure medications held. This resulted in notable improvement in his mental status. Patient's kidney function also improved with volume resuscitation and he was ur inating well on discharge. I instructed the patient to hold his blood pressure medication for the current time being and to follow-up with his primary care physician within 1 week for a long-term blood pressure plan. I saw and evaluated and examined the patient on day of discharge Disposition: Disposition/Orders: D/C to Home Activity: Activity: Resume previous activity Diet: Diet: Regular Medications: Home Meds Active Scripts Albuterol Sulfate (PROAIR HFA INHALER) 8.5 Gm Hfa.aer.ad, 1 PUFF INH PRN Q6HRS PRN for SHORTNESS OF BREATH, #1 INHALER Prov:CELESTINA MARTINEZ 07/20/16 Reported Medications Eplerenone (EPLERENONE) 25 Mg Tablet, 25 MG PO DAILY for heart, TAB 03/05/21 Ascorbic Acid (VITAMIN C) 100 Mg Tablet, 1 TAB PO DAILY for supplement for 30 Days, #30 TAB 0 Refills 03/05/21 Aspirin (Children's Aspirin) 81 Mg Tab.chew, 1 TAB PO DAILY for circulation for 30 Days, #30 TAB 0 Refills 03/05/21 Cyclobenzaprine Hcl (CYCLOBENZAPRINE HCL) 10 Mg Tablet, 10 MG PO TID for muscle relaxant, TAB 03/05/21 Cholecalciferol (Vitamin D3) (D3-50) 50,000 Unit Capsule, 1 CAP PO DAILY for supplement for 28 Days, #4 CAP 0 Refills 03/05/21 Allopurinol (ALLOPURINOL) 300 Mg Tablet, 300 MG PO DAILY for gout, TAB 03/05/21 Sennosides (SENNA LAXATIVE) 8.6 Mg Tablet, 1 TAB PO BID for constipation. for 30 Days, #60 TAB 0 Refills 03/05/21 Torsemide (TORSEMIDE) 20 Mg Tablet, 20 MG PO DAILY for htn, TAB 03/05/21 Lisinopril (Lisinopril) 40 Mg Tablet, 40 MG PO DAILY for htn, TAB 03/05/21 Discontinued Scripts Benzonatate (TESSALON PERLE) 100 Mg Capsule, 1 CAP PO TID, #30 CAP Prov:JEANNETTE COLLIER APRN 07/25/19 Methylprednisolone (MEDROL) 4 Mg Tab.ds.pk, 1 PKG PO UD, #1 PKG Prov:JEANNETTE COLLIER APRN 07/25/19 Azithromycin (AZITHROMYCIN TABLET) 250 Mg Tablet, 1 PKG PO UD for 5 Days, #6 TAB 0 Refills 2 the first day followed by 1 for days 2-5 Prov:JEANNETTE COLLIER APRN 07/25/19 Methylprednisolone (MEDROL) 4 Mg Tab.ds.pk, 1 PKG PO UD, #1 PKG Prov:LUIS FELIPE BROCK APRN 05/29/18 Cyclobenzaprine Hcl (CYCLOBENZAPRINE HCL) 10 Mg Tablet, 1 TAB PO TID, #30 TAB Prov:LUIS FELIEP BROCK [employer]PORATE REAL ESTATE MANAGER 05/29/18 Diclofenac Sodium (DICLOFENAC SODIUM) 50 Mg Tablet.dr, 1 TAB PO BID, #30 TAB 0 Refills Prov:LUIS FELIPE BROCK [employer]PORATE REAL ESTATE MANAGER 05/29/18 Prednisone (PREDNISONE) 20 Mg Tablet, 40 MG PO DAILY for 5 Days, TAB Prov:CELESTINA MARTINEZ 07/20/16 Scheduled Allopurinol (Allopurinol), 300 MG PO DAILY, (Reported) Ascorbic Acid (Vitamin C), 1 TAB PO DAILY, (Reported) Aspirin (Children's Aspirin), 1 TAB PO DAILY, (Reported) Cholecalciferol (Vitamin D3) (D3-50), 1 CAP PO DAILY, (Reported) Cyclobenzaprine Hcl (Cyclobenzaprine Hcl), 10 MG PO TID, (Reported) Eplerenone (Eplerenone), 25 MG PO DAILY, (Reported) Lisinopril (Lisinopril), 40 MG PO DAILY, (Reported) Sennosides (Senna Laxative), 1 TAB PO BID, (Reported) Torsemide (Torsemide), 20 MG PO DAILY, (Reported) Scheduled PRN Albuterol Sulfate (Proair Hfa Inhaler), 1 PUFF INH PRN Q6HRS PRN for SHORTNESS OF BREATH Discontinued Medications Azithromycin (Azithromycin Tablet), 1 PKG PO UD Discontinued Reason: DC Benzonatate (Tessalon Perle), 1 CAP PO TID Discontinued Reason: DC Cyclobenzaprine Hcl (Cyclobenzaprine Hcl), 1 TAB PO TID Discontinued Reason: DC Diclofenac Sodium (Diclofenac Sodium), 1 TAB PO BID Discontinued Reason: DC Methylprednisolone (Medrol), 1 PKG PO UD Discontinued Reason: DC Methylprednisolone (Medrol), 1 PKG PO UD Discontinued Reason: DC Prednisone (Prednisone), 40 MG PO DAILY Discontinued Reason: DC Justicifation of Admission Dx: Justifications for Admission: Justification of Admission Dx: Yes (Other) OLIVE JUAREZ MD Mar 06, 2021 10:14
[2021-03-06 11:00] VITALS: BP 139/73
--- NOTE | 2021-03-06 12:40 | NUR ---
SS following up with discharge planning. SS reviewed pt chart and discussed with pt RN. Pt is currently on room air. PT/OT recommended home independent. Discharge order on the chart for home with self care.
[2021-03-06 15:00] VITALS: BP 111/74
--- NOTE | 2021-03-06 16:44 | NUR ---
Discharge Note: MEGA LIVINGSTON Discharge instructions and discharge home medications reviewed with Patient and a copy given. All questions have been answered and understanding verbalized. The following instructions and handouts were given: DISCHARGE INSTRUCTIONS, FOLLOW UP INSTRUCTIONS, MEDICATION EDUCATION Discontinued lines and drains: Peripheral IV intact. Patient discharged to Home or Self Care with Primary Veterinary Attendant via Wheelchair
== END 2021-03-06 16:25 | disposition home or self-care (01) | DRG 314 ==
LOC: ER 19:25 → 2 NORTH 20:20
PROVIDERS: ADMIT Internal Medicine; ATTEND Internal Medicine
DX: I95.9 Hypotension, unspecified (principal); G93.41 Metabolic encephalopathy; E87.1 Hypo-osmolality and hyponatremia; N17.9 Acute kidney failure, unspecified; E78.00 Pure hypercholesterolemia, unspecified; E78.5 Hyperlipidemia, unspecified; E86.1 Hypovolemia; I11.0 Hypertensive heart disease with heart failure; I25.10 Atherosclerotic heart disease of native coronary artery without angina pectoris; I50.9 Heart failure, unspecified; Z82.49 Family history of ischemic heart disease and other diseases of the circulatory system; Z95.1 Presence of aortocoronary bypass graft; R73.9 Hyperglycemia, unspecified
CPT/HCPCS: 36415; 80048; 80053; 81001; 82436; 82570; 82607; 83735; 83880; 84133; 84300; 84443; 84484; 85025; 87086; 93005; 96360; 96361; J1644; J7030; 97116-GP; 99285-25; G0378

== ENCOUNTER 2021-12-15 09:53 | Emergency (ER) | payer MEDICARE ==
[~2021-12-15] VITALS: Ht 160 cm; Wt 78.0 kg
[~2021-12-15 09:53] MED LIST changes: +ALLO300T PO; +ASCO100T4 PO; +ASPI81TA59 PO; +CHOL500021 PO; +CYCL10TA19 PO; -CYCL10TA2 PO; +EPLE25TA4 PO; +LISI40TA6 PO; +SENN8.6T11 PO; +TORS20TA2 PO
[2021-12-15] MEDS ORDERED: methylPREDNISolone SOD SUCC PF 125 MG/2 ML VIAL. IV ONE (10:30)
[2021-12-15 10:36] LABS: BASO # 0.1 x10^3/uL (0.0-0.2); BASO % 1 % (0-3); EOS # 0.2 x10^3/uL (0.0-0.7); EOS % 2 % (0-3); HEMATOCRIT 39.7 % (39.0-53.0); LYMPH # 1.5 x10^3/uL (1.0-4.8); LYMPH % 16 % (24-48); MEAN CORPUSCULAR HEMOGLOBIN 31 pg (25-35); MEAN CORPUSCULAR HGB CONC 33 g/dL (31-37); MEAN CORPUSCULAR VOLUME 93 fL (79-100); MONO # 0.9 x10^3/uL (0.0-1.1); MONO % 10 % (0-9); NEUT # 6.4 x10^3/uL (1.8-7.7); NEUT % 71 % (31-73); PLATELET COUNT 360 x10^3/uL (140-400); RED BLOOD COUNT 4.26 x10^6/uL (4.30-5.70); RED CELL DISTRIBUTION WIDTH 13.3 % (11.5-14.5); WHITE BLOOD COUNT 9.1 x10^3/uL (4.0-11.0)
[2021-12-15 10:52] LABS: CALCIUM 9.3 mg/dL (8.5-10.1); CREATININE 1.5 mg/dL (0.7-1.3); GFR 54.5; POTASSIUM 3.6 mmol/L (3.5-5.1)
[2021-12-15 10:58] LABS: ALBUMIN 3.1 g/dL (3.4-5.0); ALBUMIN/GLOBULIN RATIO 0.6 (1.0-1.7); C-REACTIVE PROTEIN 149.5 mg/L (0-3.3); TOTAL BILIRUBIN 0.7 mg/dL (0.2-1.0); TOTAL PROTEIN 8.1 g/dL (6.4-8.2)
--- NOTE | 2021-12-15 11:22 | RAD ---
EXAMINATION: Left knee radiograph. VIEWS: 3 COMPARISON: None INDICATION:81 years, Male, swelling. FINDINGS: No acute fracture, dislocation or subluxation. There is severe tricompartmental osteoarthritis. Small joint effusion. Extensive vascular calcifications. Numerous soft tissue surgical clips. IMPRESSION: No acute osseous process. Severe tricompartmental osteoarthritis with small joint effusion. Electronically signed by: Cleve De Guzman DO (12/15/2021 11:20 AM) [id number]
[2021-12-15] MEDS ORDERED: MORPHINE SULFATE 2 MG/ML INJ. IVP ONE (12:45)
[2021-12-15] MEDS ORDERED: TRAM50TA PO (12:49)
[2021-12-15] MEDS ORDERED: PRED50TA PO (12:49)
--- NOTE | 2021-12-15 13:07 | PHYS DOC ---
Past Medical History Past Medical History: CAD, High Cholesterol, Hypertension Past Surgical History: No Surgical History Additional Past Surgical Histo: open-heart valvular surgery Smoking Status: Never Smoker Alcohol Use: None Drug Use: Cocaine, Marijuana General Adult EDM: Chief Complaint: LOWER EXT PAIN HPI: HPI: Patient is a 81 year old male who presents with left knee pain. Patient has a history of gout. He has had many gout flares in the past. Patient states that this feels like a gout flare. Patient is taking allopurinol but he has recently had his dose decreased. Patient has no other symptoms. Patient states that he has been having some left knee swelling as well. Otherwise he is doing well. He was able to ambulate but with difficulty. He is requesting crutches as well. Review of Systems: Review of Systems: Constitutional: Denies fever or chills. [] Eyes: Denies change in visual acuity. [] HENT: Denies nasal congestion or sore throat. [] Respiratory: Denies cough or shortness of breath. [] Cardiovascular: Denies chest pain or edema. [] GI: Denies abdominal pain, nausea, vomiting, bloody stools or diarrhea. [] : Denies dysuria. [] Musculoskeletal: Denies back pain, positive left knee pain [] Integument: Denies rash. [] Neurologic: Denies headache, focal weakness or sensory changes. [] Endocrine: Denies polyuria or polydipsia. [] Lymphatic: Denies swollen glands. [] Psychiatric: Denies depression or anxiety. [] Heart Score: C/O Chest Pain: No Risk Factors: Risk Factors: DM, Current or recent (<one month) smoker, HTN, HLP, family history of CAD, obesity. Risk Scores: Score 0 - 3: 2.5% MACE over next 6 weeks - Discharge Home Score 4 - 6: 20.3% MACE over next 6 weeks - Admit for Clinical Observation Score 7 - 10: 72.7% MACE over next 6 weeks - Early Invasive Strategies Current Medications: Current Medications Medications (Trade) Dose Ordered Sig/Leroy Start Time Stop Time Status Last Admin Dose Admin Methylprednisolone Sodium Succinate (SOLU-Medrol 125MG VIAL) 60 mg 1X ONCE 12/15/21 10:30 12/15/21 10:31 DC 12/15/21 10:39 60 MG Morphine Sulfate (Morphine Sulfate) 2 mg 1X ONCE 12/15/21 12:45 12/15/21 12:46 DC Allergies: Allergies: Allergies Coded Allergies Type Severity Reaction Last Updated Verified No Known Drug Allergies 07/20/16 No Physical Exam: PE: Constitutional: Well developed, well nourished, no acute distress, non-toxic appearance. [] HENT: Normocephalic, atraumatic, bilateral external ears normal, oropharynx moist, no oral exudates, nose normal. [] Eyes: PERRLA, EOMI, conjunctiva normal, no discharge. [] Neck: Normal range of motion, no tenderness, supple, no stridor. [] Cardiovascular:Heart rate regular rhythm, no murmur [] Lungs & Thorax: Bilateral breath sounds clear to auscultation [] Abdomen: Bowel sounds normal, soft, no tenderness, no masses, no pulsatile masses. [] Skin: Warm, dry, no erythema, no rash. [] Back: No tenderness, no CVA tenderness. [] Extremities: Left knee tenderness to palpation, swelling noted, mild to moderate, no overlying erythema. [] Neurologic: Alert and oriented X 3, normal motor function, normal sensory function, no focal deficits noted. [] Psychologic: Affect normal, judgement normal, mood normal. [] Current Patient Data: Labs: Laboratory Tests Test 12/15/21 10:08 White Blood Count 9.1 x10^3/uL (4.0-11.0) Red Blood Count 4.26 x10^6/uL (4.30-5.70) L Hemoglobin 13.0 g/dL (13.0-17.5) Hematocrit 39.7 % (39.0-53.0) Mean Corpuscular Volume 93 fL (79-100) Mean Corpuscular Hemoglobin 31 pg (25-35) Mean Corpuscular Hemoglobin Concent 33 g/dL (31-37) Red Cell Distribution Width 13.3 % (11.5-14.5) Platelet Count 360 x10^3/uL (140-400) Neutrophils (%) (Auto) 71 % (31-73) Lymphocytes (%) (Auto) 16 % (24-48) L Monocytes (%) (Auto) 10 % (0-9) H Eosinophils (%) (Auto) 2 % (0-3) Basophils (%) (Auto) 1 % (0-3) Neutrophils # (Auto) 6.4 x10^3/uL (1.8-7.7) Lymphocytes # (Auto) 1.5 x10^3/uL (1.0-4.8) Monocytes # (Auto) 0.9 x10^3/uL (0.0-1.1) Eosinophils # (Auto) 0.2 x10^3/uL (0.0-0.7) Basophils # (Auto) 0.1 x10^3/uL (0.0-0.2) Erythrocyte Sedimentation Rate 83 (0-15) H Sodium Level 138 mmol/L (136-145) Potassium Level 3.6 mmol/L (3.5-5.1) Chloride Level 99 mmol/L (98-107) Carbon Dioxide Level 26 mmol/L (21-32) Anion Gap 13 (6-14) Blood Urea Nitrogen 25 mg/dL (8-26) Creatinine 1.5 mg/dL (0.7-1.3) H Estimated GFR (Cockcroft-Gault) 54.5 BUN/Creatinine Ratio 17 (6-20) Glucose Level 87 mg/dL (70-99) Uric Acid 4.0 mg/dL (3.5-7.2) Calcium Level 9.3 mg/dL (8.5-10.1) Total Bilirubin 0.7 mg/dL (0.2-1.0) Aspartate Amino Transferase (AST) 14 U/L (15-37) L Alanine Aminotransferase (ALT) 10 U/L (16-63) L Alkaline Phosphatase 89 U/L (46-116) C-Reactive Protein, Quantitative 149.5 mg/L (0-3.3) H Total Protein 8.1 g/dL (6.4-8.2) Albumin 3.1 g/dL (3.4-5.0) L Albumin/Globulin Ratio 0.6 (1.0-1.7) L Laboratory Tests 12/15/21 10:08 Laboratory Tests 12/15/21 10:08 Vital Signs: Vital Signs Date Time Temp Pulse Resp B/P (MAP) Pulse Ox O2 Delivery O2 Flow Rate FiO2 12/15/21 10:05 98.1 78 20 124/84 (97) 100 Room Air 98.1 EKG: EKG: [] Radiology/Procedures: Radiology/Procedures: PATIENT: MEGA LIVINGSTON ACCOUNT: [id number] : 1940 LOCATION: ER AGE: 81 SEX: M EXAM STATUS: REG ER ORD. PHYSICIAN: COLETTE MONSIVAIS MD REASON: knee swelling PROCEDURE: KNEE LEFT 3V EXAMINATION: Left knee radiograph. VIEWS: 3 COMPARISON: None INDICATION:81 years, Male, swelling. FINDINGS: No acute fracture, dislocation or subluxation. There is severe tricompartmental osteoarthritis. Small joint effusion. Extensive vascular calcifications. Numerous soft tissue surgical clips. IMPRESSION: No acute osseous process. Severe tricompartmental osteoarthritis with small joint effusion. Electronically signed by: Bonnie Dimas DO (12/15/2021 11:20 AM) [id number] DICTATED and SIGNED BY: BONNIE DIMAS DO DATE: 12/15/219 Impression: 81-year-old male with left knee osteoarthritis compounded on left knee gouty arthritis. Course & Med Decision Making: Course & Med Decision Making Pertinent Labs and Imaging studies reviewed. (See chart for details) Patient was given 2 mg of morphine, x-ray was taken of the left knee, patient was given crutches. Patient was started on steroids. Patient was noted to have CKD. He was not given any NSAIDs in the emergency department or a prescription for outpatient treatment. He was instructed to continue to take his allopurinol as well as complete the course of steroids for his left knee gouty arthritis. Patient should follow-up in 1 to 2 weeks with his primary care physician. Patient acknowledged, all questions answered. Patient stable at time of discharge. Dragon Disclaimer: [place] Disclaimer: This electronic medical record was generated, in whole or in part, using a voice recognition dictation system. Departure Departure Impression: Primary Impression: Gout attack Additional Impression: Knee pain, left Disposition: 01 HOME / SELF CARE / HOMELESS Condition: GOOD Patient Instructions: Gout, [id number] Additional Instructions: Follow-up with your primary care physician in 3 to 5 days Complete the course of steroid tablets until they are finished You may use the pain medication as needed, stay home if you take it, it may cause drowsiness Scripts Tramadol Hcl (TRAMADOL HCL) 50 Mg Tablet 50 MG PO DAILY PRN for PAIN, #14 TAB 0 Refills Prov: COLETTE MONSIVAIS MD 12/15/21 Prednisone (PREDNISONE) 50 Mg Tablet 1 TAB PO DAILY, #7 TAB Prov: COLETTE MONSIVAIS MD 12/15/21 COLETTE MONSIVAIS MD Dec 15, 2021 13:07
[2021-12-15 13:23] VITALS: BP 134/74
== END 2021-12-15 13:24 | disposition home or self-care (01) ==
LOC: ER 09:53
DX: M10.9 Gout, unspecified (principal); M25.562 Pain in left knee; E78.00 Pure hypercholesterolemia, unspecified; I10 Essential (primary) hypertension; I25.10 Atherosclerotic heart disease of native coronary artery without angina pectoris
CPT/HCPCS: 36415; 73562; 80053; 84550; 85025; 85651; 86140; 96374; 96375; 99284; J2270; J2930